=== PATIENT | female | born 1965 | race Caucasian/White ===

== ENCOUNTER 2017-07-03 12:04 | Inpatient (IN) | payer MEDICARE, MEDICAID ==
[~2017-07-03] VITALS: Ht 167.6 cm; Wt 110.4 kg
[~2017-07-03 12:04] MED LIST: CLIN-80 PO; ONDA4TAB12 PO; ONDA8TAB6 PO; clindamycin PO
[2017-07-03 13:06] LABS: BASOPHILS # (AUTO) 0.1 X10'3 (0-0.2); BASOPHILS % (AUTO) 0.9 % (0-1); EOSINOPHILS # (AUTO) 0.2 X10'3 (0-0.9); HEMATOCRIT 43.1 % (35.0-45.0); HEMOGLOBIN 14.6 g/dl (12.0-16.0); LYMPHOCYTES # (AUTO) 2.4 X10'3 (1.1-4.8); LYMPHOCYTES % (AUTO) 29.4 % (21-51); MEAN CORPUSCULAR HEMOGLOBIN 30.2 PG (27.0-31.0); MEAN CORPUSCULAR HGB CONC 33.8 % (33.0-36.5); MEAN CORPUSCULAR VOLUME 89.4 FL (78-98); MEAN PLATELET VOLUME 7.8 FL (7.4-10.4); MONOCYTES # (AUTO) 0.6 X10'3 (0-0.9); NEUTROPHILS # (AUTO) 4.7 X10'3 (1.8-7.7); NEUTROPHILS % (AUTO) 58.7 % (42-75); PLATELET COUNT 328 X10'3 (140-440); RED BLOOD COUNT 4.83 X10'6 (4.20-5.60); RED CELL DISTRIBUTION WIDTH 14.9 % (11.5-14.5)
[2017-07-03 13:18] LABS: INR 1.1 INR; PARTIAL THROMBOPLASTIN TIME 26 SECONDS (22-32); PROTHROMBIN TIME 11.4 SECONDS (9.0-12.0)
[2017-07-03 13:23] LABS: ALANINE AMINOTRANSFERASE 29 U/L (12-78); ALBUMIN 3.4 G/DL (3.4-5.0); ALBUMIN/GLOBULIN RATIO 0.9 (1.1-1.5); ALKALINE PHOSPHATASE 91 IU/L (46-116); ANION GAP 8 (8-16); ASPARTATE AMINO TRANSFERASE 20 U/L (10-37); BILIRUBIN,TOTAL 0.3 MG/DL (0.1-1.0); BLOOD UREA NITROGEN 13 MG/DL (7-18); BUN/CREATININE RATIO 14.6 (6.6-38.0); CALCIUM 8.9 MG/DL (8.5-10.1); CHLORIDE 104 MMOL/L (99-107); CREATININE 0.89 MG/DL (0.40-0.90); GLUCOSE 105 MG/DL (70-104); POTASSIUM 3.6 MMOL/L (3.5-5.1); SODIUM 142 MMOL/L (135-145); TOTAL CARBON DIOXIDE 29.6 MMOL/L (24-32); eGFR 67 ML/MIN
[2017-07-03] MEDS ORDERED: nitroGLYCERIN 0.4mg SUBLingual tab SL PRN ×3 (13:45→17:10)
[2017-07-03] MEDS ORDERED: aspirin 81mg tab.chew PO ONE (13:45)
[2017-07-03] MEDS ORDERED: OMEP-50 PO (13:57)
[2017-07-03] MEDS ORDERED: TRAZ-143 PO (13:57)
[2017-07-03] MEDS ORDERED: LEVO100T9 PO (13:57)
[2017-07-03] MEDS ORDERED: SIMV20TA5 PO (13:57)
[2017-07-03] MEDS ORDERED: ALBU18HF2 PO (13:57)
[2017-07-03] MEDS ORDERED: BUDE10.2 PO (13:57)
[2017-07-03] MEDS ORDERED: EZET10TA13 PO (13:57)
[2017-07-03] MEDS ORDERED: HYDR-3972 PO (13:57)
[2017-07-03] MEDS ORDERED: BACL20TA7 PO (13:57)
[2017-07-03] MEDS ORDERED: acetaminophen 325mg tablet PO PRN (14:10)
[2017-07-03] MEDS ORDERED: morphine sulfate 8 MG/ML SYRINGE IV PRN (14:10)
[2017-07-03] MEDS ORDERED: magnesium hydroxide 30ml (MOM) UD suspension PO PRN (14:10)
[2017-07-03] MEDS ORDERED: ondansetron/PF 4mg/2ml inj IV PRN (14:10)
[2017-07-03] MEDS ORDERED: mag hydrox/Alum hydrox/simeth 30ml oral suspension PO PRN (14:10)
[2017-07-03 15:00] VITALS: BP 137/84
[2017-07-03] MEDS ORDERED: metoprolol tartrate 1mg/ml inj IV PRN (17:10)
[2017-07-03] MEDS ORDERED: traZODone 50mg tablet PO PRN (17:10)
[2017-07-03] MEDS ORDERED: non-formulary drug (Baclofen 1 TAB) PO PRN (17:10)
[2017-07-03] MEDS ORDERED: HYDROcodone/acetaminophen 10/325mg tab PO PRN (17:10)
[2017-07-03] MEDS ORDERED: regadenoson 0.4mg/5ml syringe IV ONE (17:10)
[2017-07-03] MEDS ORDERED: aminophylline 250mg/10ml inj. IV PRN (17:10)
[2017-07-03] MEDS: normal saline 1000ml 1,000 ML IV SCH (17:19)
[2017-07-03] MEDS ORDERED: baclofen 10mg tablet PO PRN (17:25)
[2017-07-03 19:00] VITALS: BP 129/64
[2017-07-03] MEDS: heparin, porcine 5000 units/ml vial SQ SCH (19:50)
[2017-07-03] MEDS ORDERED: non-formulary drug (Budesonide/Formoterol Fumarate (Symbicort 160-4.5 Mcg Inhaler) 2 PUFFS PO SCH (20:00)
[2017-07-03 23:00] VITALS: BP 105/61
[2017-07-04] VITALS (11 sets, daily range): BP systolic 104–159; BP diastolic 56–72
[2017-07-04] MEDS: normal saline 1000ml 1,000 ML IV SCH (04:13)
[2017-07-04 05:56] LABS: BASOPHILS # (AUTO) 0.1 X10'3 (0-0.2); BASOPHILS % (AUTO) 0.7 % (0-1); EOSINOPHILS # (AUTO) 0.2 X10'3 (0-0.9); EOSINOPHILS % (AUTO) 2.5 % (0-6); HEMATOCRIT 40.2 % (35.0-45.0); HEMOGLOBIN 13.6 g/dl (12.0-16.0); LYMPHOCYTES # (AUTO) 2.8 X10'3 (1.1-4.8); LYMPHOCYTES % (AUTO) 33.9 % (21-51); MEAN CORPUSCULAR HEMOGLOBIN 30.4 PG (27.0-31.0); MEAN CORPUSCULAR HGB CONC 33.8 % (33.0-36.5); MEAN CORPUSCULAR VOLUME 89.8 FL (78-98); MONOCYTES # (AUTO) 0.6 X10'3 (0-0.9); MONOCYTES % (AUTO) 7.6 % (2-12); NEUTROPHILS # (AUTO) 4.6 X10'3 (1.8-7.7); NEUTROPHILS % (AUTO) 55.3 % (42-75); PLATELET COUNT 288 X10'3 (140-440); RED BLOOD COUNT 4.48 X10'6 (4.20-5.60); RED CELL DISTRIBUTION WIDTH 14.1 % (11.5-14.5); WHITE BLOOD COUNT 8.2 X10'3 (4.5-11.0)
[2017-07-04 06:30] LABS: ANION GAP 10 (8-16); BLOOD UREA NITROGEN 15 MG/DL (7-18); BUN/CREATININE RATIO 17.4 (6.6-38.0); CALCIUM 8.6 MG/DL (8.5-10.1); CHLORIDE 108 MMOL/L (99-107); CREATININE 0.86 MG/DL (0.40-0.90); GLUCOSE 95 MG/DL (70-104); POTASSIUM 3.7 MMOL/L (3.5-5.1); SODIUM 144 MMOL/L (135-145); TOTAL CARBON DIOXIDE 25.8 MMOL/L (24-32); eGFR 69 ML/MIN
[2017-07-04] MEDS ORDERED: pantoprazole 40mg Tablet.DR PO SCH (07:30)
[2017-07-04] MEDS: heparin, porcine 5000 units/ml vial SQ SCH (07:56)
[2017-07-04] MEDS ORDERED: levoTHYROXINE 100mcg tablet PO SCH (08:00)
[2017-07-04] MEDS ORDERED: ezetimibe 10mg tablet PO SCH (08:00)
[2017-07-04] MEDS ORDERED: aspirin 81mg tablet.DR PO SCH (08:00)
[2017-07-04] MEDS ORDERED: non-formulary drug (Omeprazole 1 CAP) PO SCH (08:00)
[2017-07-04] MEDS ORDERED: fluticasone/vilanterol 200mcg/25mcg inhaler IH SCH (08:00)
[2017-07-04] MEDS ORDERED: regadenoson 0.4mg/5ml syringe IV ONE (11:52)
[2017-07-04] MEDS ORDERED: aminophylline inj. 0 ML IV ONE (11:52)
== END 2017-07-04 14:51 | disposition home or self-care (01) | DRG 313 ==
LOC: ER 12:05 → ED HOLD 14:07 → PCU 3S 15:10
PROVIDERS: ADMIT Family Medicine; ATTEND Family Medicine
PROC: 4A02XM4 Measurement of Cardiac Total Activity, External Approach (ICD-10-PCS; principal; 2017-07-04)
PROC: 3E073KZ Introduction of Other Diagnostic Substance into Coronary Artery, Percutaneous Approach (ICD-10-PCS; 2017-07-04)
DX: R07.89 Other chest pain (principal); E03.9 Hypothyroidism, unspecified; E78.00 Pure hypercholesterolemia, unspecified; E78.5 Hyperlipidemia, unspecified; J45.909 Unspecified asthma, uncomplicated; K21.9 Gastro-esophageal reflux disease without esophagitis; G89.29 Other chronic pain; M54.9 Dorsalgia, unspecified; Z88.0 Allergy status to penicillin; Z79.899 Other long term (current) drug therapy; Z82.49 Family history of ischemic heart disease and other diseases of the circulatory system; Z82.3 Family history of stroke
CPT/HCPCS: 36415; 71010; 78452; 80048; 80053; 84484; 85025; 85610; 85730; 87070; 93005; 93017; 99285; A6258; A9500; J0280; J1644; J2785; J7030